=== PATIENT | male | born 1990 | race Caucasian/White ===

== ENCOUNTER 2017-07-11 07:09 | Emergency (ER) | payer BC, OTHER ==
[~2017-07-11] VITALS: Ht 170.2 cm; Wt 83.9 kg
--- OUTSIDE RECORDS SUMMARY | 2017-07-11 07:15 | XMS REPORT | Continuity of Care Document ---
Author Author [facility] Organization [facility] Address Unknown Phone Unavailable Allergies Medications Problems Procedures Results Encounters ACCT No. Visit Date/Time Discharge Status Pt. Type Provider Facility Loc./Unit Complaint [id number] 12/15/2015 18:10:00 2015 23:59:59 CLS Outpatient EDGAR ENNIS APRN [facility] QUICK [id number] 07/11/2017 07:12:00 ACT Emergency VISHNU AWAD , PATRICIA Liz [facility] ER ABD PAIN
[2017-07-11] MEDS ORDERED: ONDANSETRON 4 MG/2 ML (SDV) Z0FRAN ONE (07:19)
[2017-07-11] MEDS ORDERED: KETOROLAC 30 MG/ML VIAL ONE (07:19)
[2017-07-11] MEDS ORDERED: NS IV 1000 ML 1,000 ML ONE (07:20)
[2017-07-11] MEDS ORDERED: NS IV 1000 ML 1,000 ML IV ONE (07:23)
[2017-07-11] MEDS ORDERED: KETOROLAC 30 MG/ML VIAL IVP ONE (07:30)
[2017-07-11] MEDS ORDERED: ONDANSETRON 4 MG/2 ML (SDV) Z0FRAN IVP ONE (07:30)
[2017-07-11 07:34] LABS: BASOPHILS % (AUTO) 1 % (0-10); EOSINOPHILS # (AUTO) 0.1 10^3/uL (0.0-0.3); EOSINOPHILS % (AUTO) 2 % (0-10); LYMPHOCYTES # (AUTO) 2.6 X 10^3 (1.0-4.0); LYMPHOCYTES % (AUTO) 36 % (12-44); MEAN CORPUSCULAR HEMOGLOBIN 30 PG (25-34); MEAN CORPUSCULAR HGB CONC 36 G/DL (32-36); MEAN CORPUSCULAR VOLUME 84 FL (80-99); MEAN PLATELET VOLUME 10.8 FL (7.4-10.4); MONOCYTES # (AUTO) 0.5 X 10^3 (0.0-1.0); MONOCYTES % (AUTO) 7 % (0-12); NEUTROPHILS % (AUTO) 55 % (42-75); PLATELET COUNT 280 10^3/uL (130-400); RED BLOOD COUNT 5.01 10^6/uL (4.35-5.85); RED CELL DISTRIBUTION WIDTH 12.2 % (10.0-14.5); WHITE BLOOD COUNT 7.3 10^3/uL (4.3-11.0)
--- NOTE | 2017-07-11 07:46 | ED Abdominal Pain ---
General Chief Complaint: Abdominal/GI Problems Stated Complaint: ABD PAIN Nursing Triage Note: ARRIVED VIA AMB TO ROOM 07 FROM HOME. 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 Sepsis Screen: No Definite Risk Source of Information: Patient, Family Exam Limitations: No Limitations History of Present Illness Time Seen By Provider: 07:12 Initial Comments This 26-year-old young man presents to emergency room with intermittent right flank pain for the past few days. This morning between 06:00 and 06:30 the pain became very severe. He presents to the emergency room by private vehicle writhing in pain. He was found by this provider by over a trash can in the waiting room vomiting. He reports the pain is in the right lower back, flank, and radiating down toward the pelvis. Any movement exacerbates the pain. He denies any urinary changes or fever. Allergies and Home Medications Allergies Coded Allergies: diphenhydramine (Verified Allergy, Unknown, 07/11/17) Home Medications Hydrocodone/Acetaminophen 1 Each Tablet, 1-2 EACH PO Q4H PRN for PAIN, #20 Prescribed by: PATRICIA DEVRIES on 07/11/17 1011 Ondansetron 4 Mg Tab.rapdis, 4 MG SL Q4H PRN for NAUSEA/VOMITING-1ST LINE, #10 Prescribed by: PATRICIA DEVRIES on 07/11/17 1011 Review of Systems Constitutional: no symptoms reported EENTM: No Symptoms Reported Respiratory: No Symptoms Reported Cardiovascular: No Symptoms Reported Gastrointestinal: See HPI Genitourinary: No Symptoms Reported Musculoskeletal: see HPI Skin: no symptoms reported Psychiatric/Neurological: No Symptoms Reported Endocrine: No Symptoms Reported Hematologic/Lymphatic: No Symptoms Reported Past Mcdohts-Bsrzcl-Cygoby Hx Patient Social History Alcohol Use: Denies Use Recreational Drug Use: No Smoking Status: Current Someday Smoker Type Used: Cigars Recent Foreign Travel: No Contact w/Someone Who Travel: No Recent Infectious Disease Expo: No Recent Hopitalizations: No Surgeries History of Surgeries: Yes (NOSE) Respiratory History of Respiratory Disorde: No Cardiovascular History of Cardiac Disorders: No Neurological History of Neurological Disord: No Reproductive System Hx Reproductive Disorders: No Genitourinary History of Genitourinary Disor: No Gastrointestinal History of Gastrointestinal Di: No Musculoskeletal History of Musculoskeletal Dis: No Endocrine History of Endocrine Disorders: No HEENT History of HEENT Disorders: No Cancer History of Cancer: No Psychosocial History of Psychiatric Problem: No Integumentary History of Skin or Integumenta: No Blood Transfusions History of Blood Disorders: No Physical Exam Vital Signs VS - Last 72 Hours, by Label 07/11/17 07/11/17 07:20 10:18 Temp 98.7 Pulse 83 71 Resp 16 18 B/P (MAP) 126/104 (111) Pulse Ox 98 98 O2 Delivery Room Air Room Air Capillary Refill : Less Than 3 Seconds General Appearance: WD/WN, moderate distress HEENT: PERRL/EOMI, normal ENT inspection Neck: normal inspection Respiratory: lungs clear, normal breath sounds, no respiratory distress, no accessory muscle use Cardiovascular: regular rate, rhythm, no edema, no murmur Gastrointestinal: soft, abnormal bowel sounds (decreased), tenderness ( throughout the right abdomen and pelvis, most intense in the right flank) Extremities: normal inspection, no pedal edema 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, no motor/sensory deficits, alert, normal mood/affect, oriented x 3 Skin: normal color, warm/dry Progress/Results/Core Measures Results/Orders Lab Results Laboratory Tests Test 07/11/17 07:25 07/11/17 08:10 Range/Units White Blood Count 7.3 4.3-11.0 10^3/uL Red Blood Count 5.01 4.35-5.85 10^6/uL Hemoglobin 15.1 13.3-17.7 G/DL Hematocrit 42 40-54 % Mean Corpuscular Volume 84 80-99 FL Mean Corpuscular Hemoglobin 30 25-34 PG Mean Corpuscular Hemoglobin Concent 36 32-36 G/DL Red Cell Distribution Width 12.2 10.0-14.5 % Platelet Count 280 130-400 10^3/uL Mean Platelet Volume 10.8 H 7.4-10.4 FL Neutrophils (%) (Auto) 55 42-75 % Lymphocytes (%) (Auto) 36 12-44 % Monocytes (%) (Auto) 7 0-12 % Eosinophils (%) (Auto) 2 0-10 % Basophils (%) (Auto) 1 0-10 % Neutrophils # (Auto) 4.0 1.8-7.8 X 10^3 Lymphocytes # (Auto) 2.6 1.0-4.0 X 10^3 Monocytes # (Auto) 0.5 0.0-1.0 X 10^3 Eosinophils # (Auto) 0.1 0.0-0.3 10^3/uL Basophils # (Auto) 0.0 0.0-0.1 10^3/uL Sodium Level 139 135-145 MMOL/L Potassium Level 3.5 L 3.6-5.0 MMOL/L Chloride Level 103 98-107 MMOL/L Carbon Dioxide Level 23 21-32 MMOL/L Anion Gap 13 5-14 MMOL/L Blood Urea Nitrogen 11 7-18 MG/DL Creatinine 1.08 0.60-1.30 MG/DL Estimat Glomerular Filtration Rate > 60 BUN/Creatinine Ratio 10 Glucose Level 127 H 70-105 MG/DL Calcium Level 9.1 8.5-10.1 MG/DL Total Bilirubin 0.6 0.1-1.0 MG/DL Aspartate Amino Transf (AST/SGOT) 23 5-34 U/L Alanine Aminotransferase (ALT/SGPT) 19 0-55 U/L Alkaline Phosphatase 90 40-136 U/L Total Protein 7.4 6.4-8.2 GM/DL Albumin 4.4 3.2-4.5 GM/DL Lipase 13 8-78 U/L Urine Color YELLOW Urine Clarity CLEAR Urine pH 6 5-9 Urine Specific [place] 1.020 1.016-1.022 Urine Protein 2+ H NEGATIVE Urine Glucose (UA) NEGATIVE NEGATIVE Urine Ketones NEGATIVE NEGATIVE Urine Nitrite NEGATIVE NEGATIVE Urine Bilirubin NEGATIVE NEGATIVE Urine Urobilinogen NORMAL NORMAL MG/DL Urine Leukocyte Esterase 1+ H NEGATIVE Urine RBC (Auto) 5+ H NEGATIVE Urine RBC >100 H /HPF Urine WBC 2-5 /HPF Urine Crystals NONE /LPF Urine Bacteria FEW H /HPF Urine Casts NONE /LPF Urine Mucus MODERATE H /LPF Urine Culture Indicated YES Micro Results Microbiology 07/11/17 Urine Culture - Final, Complete My Orders Orders - PATRICIA MARES MD Ua Culture If Indicated (07/11/17 07:16) Ondansetron Injection (Zofran Injectio (07/11/17 07:19) Ketorolac Injection (Toradol Injection) (07/11/17 07:19) Ns Iv 1000 Ml (Sodium Chloride 0.9%) (07/11/17 07:20) Cbc With Automated Diff (07/11/17 07:23) Comprehensive Metabolic Panel (07/11/17 07:23) Lipase (07/11/17 07:23) Saline Lock/Iv-Start (07/11/17 07:23) Ns Iv 1000 Ml (Sodium Chloride 0.9%) (07/11/17 07:23) Ondansetron Injection (Zofran Injectio (07/11/17 07:30) Ketorolac Injection (Toradol Injection) (07/11/17 07:30) Urine Culture (07/11/17 08:10) Ct Abd/Pelvis Wo(Kidney Stone) (07/11/17 08:53) Glycopyrrolate Injection (Robinul Inject (07/11/17 09:30) Abdomen/Kub 1view (07/11/17 09:25) Medications Given in ED Vital Signs/I&O Vital Sign - Last 12Hours 07/11/17 07/11/17 07:20 10:18 Temp 98.7 Pulse 83 71 Resp 16 18 B/P (MAP) 126/104 (111) Pulse Ox 98 98 O2 Delivery Room Air Room Air Blood Pressure Mean: 111 Progress Note : Time: 07:46 Progress Note Patient's presentation was rather suspicious for ureteral stone. He was given Toradol, Zofran, and IV fluids. Workup is pending. Diagnostic Imaging Plain Films/CT/US/NM/MRI: abdomen, pelvis Comments CT abdomen and pelvis viewed by me and report reviewed. See report below: NAME: NEVA DELATORRE [facility] REC#: [id number] PT STATUS: REG ER : 1990 PHYSICIAN: PATRICIA MARES MD ADMIT DATE: 07/11/17/ER Draft Date of Exam:07/11/17 CT ABD/PELVIS WO(KIDNEY STONE) PROCEDURE: CT urinary tract, rule out kidney stone. TECHNIQUE: Multiple contiguous axial images were obtained through the abdomen and pelvis without the use of intravenous contrast. INDICATION: Right flank pain. At the level of the L3-L4 intervertebral disc space, there is a 2.4 mm stone in the right ureter at the junction of its proximal and middle one thirds resulting in mild upstream right-sided hydroureteronephrosis. There is right-sided perinephric edema and mild periureteric edema. The right ureter beyond that level is normal in caliber with no additional opaque stone. The urinary bladder unremarkable. There are additional intrarenal nonobstructing stones on the right largest measuring 5 mm within its middle third. The unobstructed left kidney is nonfocal and without stone. The left ureter normal. The appendix is normal. The liver, spleen, adrenals and pancreas and gallbladder normal. Is no bowel obstruction. Is a fatty left inguinal hernia likely extending into the left scrotal sac but going below the [id number]. No herniated viscus or inflammation within the sac. IMPRESSION: A 2.4 mm stone proximal right ureter results in mild upstream hydronephrosis with additional nonobstructing intrarenal right-sided stones. Negative left kidney. Negative appendix, chronic fatty left inguinal hernia. Dictated on workstation # [id number] Dict: 07/11/17911 Trans: 07/11/17920 [facility] [id number] Interpreted by: NEVA PATEL Departure Impression Impression: Primary Impression: Right ureteral stone Additional Impressions: Nausea and vomiting Qualified Codes: R11.2 - Nausea with vomiting, unspecified Hydronephrosis Qualified Codes: N13.30 - Unspecified hydronephrosis Disposition: 01 HOME, SELF-CARE Condition: Improved Departure-Patient Inst. Decision time for Depature: 09:45 Referrals: NO,LOCAL PHYSICIAN (PCP/Family) Primary Care Physician Patient Instructions: Kidney Stones in Adults Add. Discharge Instructions: Drink plenty of clear liquids. Use your medications as prescribed. Do not drive or operate machinery while taking narcotic pain medications. Follow-up with your primary care provider and/or Dr. Lomas as soon as possible. You may need a referral from your primary care provider to see Dr. Lomas. Return to the emergency room if symptoms worsen or not controlled by your oral medications. Strain your urine in the funnel and bring any stones collected to your follow-up appointment. All discharge instructions reviewed with patient and/or family. Voiced understanding. Scripts Ondansetron (Zofran Odt) 4 Mg Tab.rapdis 4 MG SL Q4H Y for NAUSEA/VOMITING-1ST LINE, #10 TAB Prov: PATRICIA MARES MD 07/11/17 Hydrocodone/Acetaminophen (Hydrocodon -Acetaminophen 5-325) 1 Each Tablet 1-2 EACH PO Q4H Y for PAIN, #20 TAB Prov: PATRICIA MARES MD 07/11/17 Work/School Note: Work Release Form Date Seen in the Emergency Department: Jul 11, 2017 Return to Work: Jul 12, 2017 Other Restrictions Listed Below: No driving or operating machinery on narcotic pain medications PATRICIA MARES MD Jul 11, 2017 07:46
[2017-07-11 07:57] LABS: ALANINE AMINOTRANSFERASE 19 U/L (0-55); ALBUMIN 4.4 GM/DL (3.2-4.5); ANION GAP 13 MMOL/L (5-14); ASPARTATE AMINO TRANSFERASE 23 U/L (5-34); BILIRUBIN,TOTAL 0.6 MG/DL (0.1-1.0); BLOOD UREA NITROGEN 11 MG/DL (7-18); BUN/CREATININE RATIO 10; CALCIUM 9.1 MG/DL (8.5-10.1); CARBON DIOXIDE 23 MMOL/L (21-32); CHLORIDE 103 MMOL/L (98-107); CREATININE SERUM 1.08 MG/DL (0.60-1.30); GFR ESTIMATED > 60; GLUCOSE 127 MG/DL (70-105); LIPASE 13 U/L (8-78); POTASSIUM 3.5 MMOL/L (3.6-5.0); SODIUM 139 MMOL/L (135-145); TOTAL PROTEIN 7.4 GM/DL (6.4-8.2)
[2017-07-11 08:18] LABS: BILIRUBIN,URINE NEGATIVE (NEGATIVE); KETONES,URINE NEGATIVE (NEGATIVE); LEUKOCYTE ESTERASE ,URINE 1+ (NEGATIVE); NITRITE,URINE NEGATIVE (NEGATIVE); PH,URINE 6 (5-9); PROTEIN,URINE 2+ (NEGATIVE); UROBILINOGEN,URINE NORMAL (NORMAL)
--- NOTE | 2017-07-11 09:21 | Diagnostic Imaging Report ---
PROCEDURE: CT urinary tract, rule out kidney stone. TECHNIQUE: Multiple contiguous axial images were obtained through the abdomen and pelvis without the use of intravenous contrast. INDICATION: Right flank pain. At the level of the L3-L4 intervertebral disc space, there is a 2.4 mm stone in the right ureter at the junction of its proximal and middle one thirds resulting in mild upstream right-sided hydroureteronephrosis. There is right-sided perinephric edema and mild periureteric edema. The right ureter beyond that level is normal in caliber with no additional opaque stone. The urinary bladder unremarkable. There are additional intrarenal nonobstructing stones on the right largest measuring 5 mm within its middle third. The unobstructed left kidney is nonfocal and without stone. The left ureter normal. The appendix is normal. The liver, spleen, adrenals and pancreas and gallbladder normal. Is no bowel obstruction. Is a fatty left inguinal hernia likely extending into the left scrotal sac but going below the [id number]. No herniated viscus or inflammation within the sac. IMPRESSION: A 2.4 mm stone proximal right ureter results in mild upstream hydronephrosis with additional nonobstructing intrarenal right-sided stones. Negative left kidney. Negative appendix, chronic fatty left inguinal hernia. Dictated by: Dictated on workstation # [id number]
[2017-07-11] MEDS ORDERED: GLYCOPYRROLATE 0.2 MG/ML (ROBINUL) 2 ML VIAL IV ONE (09:30)
--- NOTE | 2017-07-11 09:49 | Diagnostic Imaging Report ---
INDICATION: Right-sided stone. FINDINGS: Calculus can be visualized measuring cephalocaudal length of roughly 3.3 mm and when imaged with a calculus at the midportion of the film this corresponds to the level of the inferior endplate L3 and inferior to the tip of the right third lumbar transverse process. Intrarenal stone measures a 3-4 mm partially obscured by overlying stool. Right renal shadow negative. IMPRESSION: Ureteral stone visualized when seen straight on is at the L3 inferior endplate level. The intrarenal right-sided stone partially visualized, left side negative. No bowel obstruction. Dictated by: Dictated on workstation # [id number]
[2017-07-11] MEDS ORDERED: ONDA4TAB8 SL (10:11)
[2017-07-11] MEDS ORDERED: HYDR-3812 PO (10:11)
[2017-07-11 10:18] VITALS: BP 112/77
== END 2017-07-11 10:18 | disposition home or self-care (01) ==
LOC: EDUNIT# 07:09 → ER 07:12
DX: N13.2 Hydronephrosis with renal and ureteral calculous obstruction (principal); F17.290 Nicotine dependence, other tobacco product, uncomplicated
CPT/HCPCS: 36415; 74000; 74176; 80053; 81000; 83690; 85025; 87088

== ENCOUNTER 2017-07-17 14:32 | Outpatient (CLI) | payer BC ==
[~2017-07-17] VITALS: Ht 170.2 cm; Wt 83.9 kg
[~2017-07-17 14:32] MED LIST changes: -CIPR-225 PO; -KETOROLAC 30 MG/ML VIAL ONE; -TAMS0.4C98 PO
[2017-07-17] MEDS ORDERED: TAMS0.4C98 PO ×2 (14:48)
[2017-07-18] MEDS ORDERED: CIPR-225 PO ×2 (15:09)
== END 2017-07-17 14:56 ==
LOC: PREOP 14:32
PROVIDERS: ATTEND Urology
DX: Z01.818 Encounter for other preprocedural examination (principal); N20.2 Calculus of kidney with calculus of ureter

== ENCOUNTER → 2017-07-17 | Outpatient (CLI) | payer BC ==
[~2017-07-17] MED LIST: CIPR-225 PO; HYDR-3812 PO; KETOROLAC 30 MG/ML VIAL ONE; ONDA4TAB8 SL; TAMS0.4C98 PO
--- NOTE | 2017-07-17 15:58 | Diagnostic Imaging Report ---
INDICATION: Followup calculus. COMPARISON: 07/11/2017. FINDINGS: Two supine radiographic views of the abdomen are obtained and again demonstrate small extraosseous calcification projecting over the right psoas muscle. Calcification appears to be slightly more inferior on today's exam, projecting inferior to the right L2 transverse process, as opposed to just superior to the transverse process on prior exam. No new extraosseous calcifications are seen. Small bowel loops are nondistended. Bony structures show no gross acute abnormalities. IMPRESSION: Probable slight interval distal migration of right-sided ureteral calculus. Dictated by: Dictated on workstation # [id number]
== END ==
LOC: RAD 12:08
PROVIDERS: ATTEND Urology
DX: N20.1 Calculus of ureter (principal)
CPT/HCPCS: 74000

== ENCOUNTER 2017-07-18 09:43 | Day surgery (SDC) | payer BC ==
[~2017-07-18] VITALS: Ht 170.2 cm; Wt 83.9 kg
[~2017-07-18 09:43] MED LIST changes: +TAMS0.4C98 PO
[2017-07-18 09:46] VITALS: BP 134/93
[2017-07-18] MEDS ORDERED: cefTRIAXone INJECTION 1,000 MG in NS (IVPB) 50 ML IV ONE (10:00)
--- NOTE | 2017-07-18 10:12 | Progress Note-Pre Operative ---
Pre-Operative Progress Note H&P Reviewed The H&P was reviewed, patient examined and no changes noted. Date Seen by Provider: Jul 18, 2017 Time Seen by Provider: 10:11 Date H&P Reviewed: Jul 18, 2017 Time H&P Reviewed: 10:11 Pre-Operative Diagnosis: RT URETERAL AND RENAL STONES KAHLIL MADDEN MD Jul 18, 2017 10:12 am
[2017-07-18] MEDS ORDERED: CATHETER FLUSH 10 ML SYR IV PRN (10:15)
--- NOTE | 2017-07-18 10:22 | Diagnostic Imaging Report ---
EXAMINATION: Supine views of the abdomen. INDICATION: Right-sided stone. COMPARISON: 06/1817. FINDINGS: The previously seen right flank suspected ureteric stone is not visualized at this time. No definite urinary tract stone. Moderate amount of fecal material in the colon is seen. IMPRESSION: No definite ureteric stone is seen at this time. Dictated by: Dictated on workstation # [id number]
[2017-07-18] MEDS ORDERED: LACTATED RINGERS 1,000 ML IV PRN (10:50)
--- NOTE | 2017-07-18 10:53 | Progress Note-Post Operative ---
Post-Operative Progess Note Surgeon (s)/Biodiesel Operations Manager (s) Surgeon KAHLIL MADDEN MD Biodiesel Operations Manager: N/A Pre-Operative Diagnosis RT URETERAL AND RENAL STONES Post-Operative Diagnosis SAME Procedure & Operative Findings Date of Procedure 07/18/17 Procedure Performed/Findings CYSTOSCOPY, RT RETROGRADE UROGRAM AND RT ESWL Anesthesia Type GENERAL Estimated Blood Loss Estimated blood loss (mL): N/A Specimens/Packing Specimens Removed N/A Packing: N/A KAHLIL MADDEN MD Jul 18, 2017 10:53 am
--- NOTE | 2017-07-18 10:54 | Discharge Inst-Urology ---
Discharge Inst-Urology Discharge Medications New, Converted, or Re-newed RX: RX on Chart Patient Instructions/Follow Up Plan Please make appointment to been seen in office in 4 weeks. KUB prior to it KUB on way home Post ESWL instructions Increase oral fluids for 48 hours and then as needed. Diet and Activity as tolerated. If questions or concerns contact your physician Or seek help at emergency department. KAHLIL MADDEN MD Jul 18, 2017 10:54 am
[2017-07-18] MEDS ORDERED: MIDAZOLAM 2 MG/2 ML (VERSED) VIAL IV ONE (11:00)
--- OUTSIDE RECORDS SUMMARY | 2017-07-18 11:05 | XMS REPORT | Continuity of Care Document ---
Author Author [facility] Organization [facility] Address Unknown Phone Unavailable Allergies Active Description Code Type Severity Reaction Onset Reported/Identified Relationship to Patient Clinical Status Yes diphenhydramine [id number] Drug Allergy Unknown N/A 07/17/2017 Medications There is no data. Problems There is no data. Procedures There is no data. Results Test Result Range Complete blood count (CBC) with automated white blood cell (WBC) differential - 07/11/17 07:25 Blood leukocytes automated count (number/volume) 7.3 10*3/uL 4.3-11.0 Blood erythrocytes automated count (number/volume) 5.01 10*6/uL 4.35-5.85 Venous blood hemoglobin measurement (mass/volume) 15.1 g/dL 13.3-17.7 Blood hematocrit (volume fraction) 42 % 40-54 Automated erythrocyte mean corpuscular volume 84 [foz_us] 80-99 Automated erythrocyte mean corpuscular hemoglobin (mass per erythrocyte) 30 pg 25-34 Automated erythrocyte mean corpuscular hemoglobin concentration measurement ( mass/volume) 36 g/dL 32-36 Automated erythrocyte distribution width ratio 12.2 % 10.0-14.5 Automated blood platelet count (count/volume) 280 10*3/uL 130-400 Automated blood platelet mean volume measurement 10.8 [foz_us] 7.4-10.4 Automated blood neutrophils/100 leukocytes 55 % 42-75 Automated blood lymphocytes/100 leukocytes 36 % 12-44 Blood monocytes/100 leukocytes 7 % 0-12 Automated blood eosinophils/100 leukocytes 2 % 0-10 Automated blood basophils/100 leukocytes 1 % 0-10 Blood neutrophils automated count (number/volume) 4.0 10*3 1.8-7.8 Blood lymphocytes automated count (number/volume) 2.6 10*3 1.0-4.0 Blood monocytes automated count (number/volume) 0.5 10*3 0.0-1.0 Automated eosinophil count 0.1 10*3/uL 0.0-0.3 Automated blood basophil count (count/volume) 0.0 10*3/uL 0.0-0.1 Comprehensive metabolic panel - 07/11/17 07:25 Serum or plasma sodium measurement (moles/volume) 139 mmol/L 135-145 Serum or plasma potassium measurement (moles/volume) 3.5 mmol/L 3.6-5.0 Serum or plasma chloride measurement (moles/volume) 103 mmol/L 98-107 Carbon dioxide 23 mmol/L 21-32 Serum or plasma anion gap determination (moles/volume) 13 mmol/L 5-14 Serum or plasma urea nitrogen measurement (mass/volume) 11 mg/dL 7-18 Serum or plasma creatinine measurement (mass/volume) 1.08 mg/dL 0.60-1.30 Serum or plasma urea nitrogen/creatinine mass ratio 10 NRG Serum or plasma creatinine measurement with calculation of estimated glomerular filtration rate > NRG Serum or plasma glucose measurement (mass/volume) 127 mg/dL 70-105 Serum or plasma calcium measurement (mass/volume) 9.1 mg/dL 8.5-10.1 Serum or plasma total bilirubin measurement (mass/volume) 0.6 mg/dL 0.1-1.0 Serum or plasma alkaline phosphatase measurement (enzymatic activity/volume) 90 U/L 40-136 Serum or plasma aspartate aminotransferase measurement (enzymatic activity/ volume) 23 U/L 5-34 Serum or plasma alanine aminotransferase measurement (enzymatic activity/volume ) 19 U/L 0-55 Serum or plasma protein measurement (mass/volume) 7.4 g/dL 6.4-8.2 Serum or plasma albumin measurement (mass/volume) 4.4 g/dL 3.2-4.5 Lipase - 07/11/17 07:25 Lipase 13 U/L 8-78 Complete urinalysis with reflex to culture - 07/11/17 08:10 Urine color determination YELLOW NRG Urine clarity determination CLEAR NRG Urine pH measurement by test strip 6 5-9 Specific gravity of urine by test strip 1.020 1.016- 1.022 Urine protein assay by test strip, semi-quantitative 2+ NEGATIVE Urine glucose detection by automated test strip NEGATIVE NEGATIVE Erythrocytes detection in urine sediment by light microscopy 5+ NEGATIVE Urine ketones detection by automated test strip NEGATIVE NEGATIVE Urine nitrite detection by test strip NEGATIVE NEGATIVE Urine total bilirubin detection by test strip NEGATIVE NEGATIVE Urine urobilinogen measurement by automated test strip (mass/volume) NORMAL NORMAL Urine leukocyte esterase detection by dipstick 1+ NEGATIVE Automated urine sediment erythrocyte count by microscopy (number/high power field) > [HPF] NRG Automated urine sediment leukocyte count by microscopy (number/high power field ) [HPF] NRG Bacteria detection in urine sediment by light microscopy FEW NRG Crystals detection in urine sediment by light microscopy NONE NRG Casts detection in urine sediment by light microscopy NONE NRG Mucus detection in urine sediment by light microscopy MODERATE NRG Complete urinalysis with reflex to culture YES NRG Bacterial urine culture - 07/11/17 08:10 URINE CULTURE RESULTS <10,000/ML NRG Encounters ACCT No. Visit Date/Time Discharge Status Pt. Type Provider Facility Loc./Unit Complaint [id number] 07/17/2017 14:32:00 07/17/2017 14:56:00 DIS Outpatient KAHLIL MADDEN MD [facility] PREOP RIGHT URETERAL AND RENAL STONES [id number] 07/11/2017 07:12:00 07/11/2017 10:18:00 DIS Emergency PATRICIA MARES MD [facility] ER ABD PAIN [id number] 12/15/2015 18:10:00 12/15/2015 23:59:59 CLS Outpatient EDGAR ENNIS APRN [facility] QUICK [id number] 07/18/2017 09:43:00 ACT Outpatient KAHLIL MADDEN MD [facility] SDC RIGHT URETERAL AND RENAL STONES [id number] 07/17/2017 12:08:00 ACT Outpatient KAHLIL MADDEN MD [facility] [place] [id number]
[2017-07-18] MEDS ORDERED: fentaNYL INJECTION 100 MCG/2 ML AMP ONE (12:06)
[2017-07-18] MEDS ORDERED: ONDANSETRON 4 MG/2 ML (SDV) Z0FRAN ONE (12:06)
[2017-07-18] MEDS ORDERED: proPOfol 200 MG/20 ML (DIPRIVAN) VIAL IV ONE (12:06)
[2017-07-18] MEDS ORDERED: LIDOCAINE PF 2% 5 ML (XYLOCAINE) VIAL ONE (12:06)
[2017-07-18] MEDS ORDERED: MIDAZOLAM 2 MG/2 ML (VERSED) VIAL ONE (12:07)
[2017-07-18] MEDS ORDERED: SEVOFLURANE (ULTANE) 15 ML INHAL SOLN ONE ×3 (12:08→13:32)
[2017-07-18] MEDS ORDERED: DEXAMETHASONE 10 MG/ML (DECADRON) 1 ML VIAL ONE (12:08)
[2017-07-18] MEDS ORDERED: FUROSEMIDE 40 MG/4 ML INJ (LASIX) ONE (13:17)
--- NOTE | 2017-07-18 13:59 | Diagnostic Imaging Report ---
EXAMINATION: Retrograde pyeloureterogram. INDICATION: Right flank pain and hematuria. FINDINGS: There is mild distention of the right renal collecting system possibly related to the retrograde injection. There is no definite stone identified. IMPRESSION: No definite right ureteric stone is seen. Please note that the images provided do not include the most distal aspect of the right ureter. Dictated by: Dictated on workstation # [id number]
[2017-07-18 14:30] VITALS: BP 115/82
[2017-07-18 15:00] VITALS: BP 122/85
[2017-07-18] MEDS ORDERED: CIPR-225 PO ×2 (15:09)
[2017-07-18 15:30] VITALS: BP 130/82
--- NOTE | 2017-07-18 15:46 | Diagnostic Imaging Report ---
Supine view of the abdomen. INDICATION: Post lithotripsy. COMPARISON: 07/18/2017. FINDINGS: No definite urinary tract stone is identified. Unremarkable bowel gas pattern is noted. IMPRESSION: No definite stone is seen. Dictated by: Dictated on workstation # [id number]
--- NOTE | 2017-07-19 00:54 | OPERATIVE REPORT ---
DATE OF SERVICE: 07/18/2017 PREOPERATIVE DIAGNOSIS: Right proximal ureteral and right renal stones. POSTOPERATIVE DIAGNOSIS: Right proximal ureteral and right renal stones. OPERATION PERFORMED: Cystoscopy, right retrograde ureterogram and right ESWL. SURGEON: Chris Madden MD ANESTHESIA: General. COMPLICATIONS: None. PROCEDURE: Under satisfactory general anesthesia, the patient in lithotomy position in the cysto room. The genitalia were prepped and draped in the usual sterile fashion. Cystoscope was introduced under vision. There was a submeatal stricture responding to the scope. The rest of the urethra was normal. The prostate was nonobstructive. Bladder neck was open. Bladder was essentially normal. Normal ureteric orifices with clear efflux, sluggish on the right side. Using the foroblique lens, I passed a right ureteral catheter, a 6-Russian size all the way up to the level of the presumed stone. I met resistance; however, it gave up and the stone seemed to have been pushed back into the kidney. I injected contrast and there was no filling defect at the site of the stone. There was a filling defect in the pelvicalyceal system persistent throughout the injections. I passed the catheter all the way up and down injecting contrast. The ureter was emptying very nicely. There was still some dilatation of the calices from previous obstruction and dilatation of the ureter to the level of the previous stone presence, below that the ureter was thin and nice. However, the ureter was definitely emptying very well. There was no filling defect. I went ahead and emptied the bladder, removed the cystoscope, moved the patient to the ESWL table in supine. We localized the filling defect in the right kidney and delivered 1500 shocks at kV of 5 and we could not see the filling defect anymore. It was interesting that the kidney was emptying itself very well and the calices were becoming very sharp and nicely, no more dilated, which confirmed no more obstruction. The patient received 40 mg of Lasix and 30 mg of Toradol IV at the end of the procedure. He tolerated the procedure and anesthesia well and was sent to recovery room in stable condition. Job ID: [id number] DocumentID: [id number] Dictated Date: 07/18/2017 13:40:07 Bottoming Room Supervisor Date: 07/19/2017 00:24:13 Dictated By: CHRIS MADDEN MD
== END 2017-07-18 15:38 | disposition home or self-care (01) ==
LOC: SDC 09:43
PROVIDERS: ATTEND Urology
DX: N20.2 Calculus of kidney with calculus of ureter (principal)
CPT/HCPCS: 74000; 87081

== ENCOUNTER → 2017-08-15 | Outpatient (CLI) | payer BC ==
[~2017-08-15] MED LIST changes: +ACHD5005 PO; +CIPR-225 PO; -HYDR-3812 PO
--- NOTE | 2017-08-15 16:48 | Diagnostic Imaging Report ---
INDICATION: Status post lithotripsy. Surveillance imaging. COMPARISON: 07/18/2017. FINDINGS AND IMPRESSION: 1. No radiopaque renal or ureteral calculi are confirmed. 2. Nonobstructive bowel gas pattern. 3. Normal regional skeleton. Dictated by: Dictated on workstation # [id number]
== END ==
LOC: RAD 15:20
PROVIDERS: ATTEND Urology
DX: Z09 Encounter for follow-up examination after completed treatment for conditions other than malignant neoplasm (principal); Z87.442 Personal history of urinary calculi; Z98.890 Other specified postprocedural states
CPT/HCPCS: 74018

== ENCOUNTER → 2018-12-27 | Emergency (ER) | payer SELFPAY ==
[~2018-12-27] VITALS: Ht 170.2 cm; Wt 86.2 kg
[~2018-12-27] MED LIST changes: +CEPH500T PO
--- NOTE | 2018-12-27 04:55 | NUR ---
radiating to left side started 0330 this am. pt here with " ". pt alert gcs 15. pt relates " i have kidney stones". pt has h/o k stones on the right. pt relates llq abd pain . pt relates pain went away in the prking lot here ten changed to pain rating 1-2. c/o nausea w/o v/d. skin pale. pt c/o blood in ua and pain with ua and ua less then usual. denies dyspnea and no acute sighns of dyspnea noted. pt took motrin group captain here. rocio gs cta bilaterally. abd soft nondistended neg pain with palpaion. pt cant ua yet. done terence pt at 0501.
--- OUTSIDE RECORDS SUMMARY | 2018-12-27 04:55 | XMS REPORT | Continuity of Care Document ---
Author Organization Unknown Address Unknown Allergies Active Description Code Type Severity Reaction Onset Reported/Identified Relationship to Patient Clinical Status Yes diphenhydramine [id number] Drug Allergy Unknown N/A 07/17/2017 Medications There is no data. 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 07/11/2017 PATRICIA MARES MD Ot R10.9 UNSPECIFIED ABDOMINAL PAIN 07/17/2017 KAHLIL MADDEN MD Ot N20.2 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 07/17/2017 KAHLIL MADDEN MD Ot Z01.818 ENCOUNTER FOR OTHER PREPROCEDURAL EXAMIN 07/18/2017 KAHLIL MADDEN MD Ot N20.2 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 07/20/2017 CHANO AWAD, KAHLIL Rincon Ot N20.2 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 07/20/2017 KAHLIL MADDEN MD Ot Z01.818 ENCOUNTER FOR OTHER PREPROCEDURAL EXAMIN 07/20/2017 KAHLIL MADDEN MD Ot N20.2 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 07/20/2017 CHANO AWAD, KAHLIL Rincon Ot N20.2 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 07/24/2017 KAHLIL MADDEN MD Ot N20.2 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 07/29/2017 KAHLIL MADDEN MD Ot N20.2 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 07/29/2017 KAHLIL MADDEN MD Ot Z01.818 ENCOUNTER FOR OTHER PREPROCEDURAL EXAMIN 08/16/2017 KAHLIL MADDEN MD, Ot Z09 ENCNTR FOR F/U EXAM AFT TRTMT FOR COND O 08/16/2017 KAHLIL MADDEN MD, Ot Z87.442 PERSONAL HISTORY OF URINARY CALCULI 08/16/2017 KAHLIL MADDEN MD, Ot Z98.890 OTHER SPECIFIED POSTPROCEDURAL STATES 08/17/2017 KAHLIL MADDEN MD, Ot N20.1 CALCULUS OF URETER 08/31/2017 KAHLIL MADDEN MD, Ot Z09 ENCNTR FOR F/U EXAM AFT TRTMT FOR COND O 08/31/2017 KAHLIL MADDEN MD, Ot Z87.442 PERSONAL HISTORY OF URINARY CALCULI 08/31/2017 KAHLIL MADDEN MD, Ot Z98.890 OTHER SPECIFIED POSTPROCEDURAL STATES 03/21/2018 Ot 780.79 OTH MALAISE FATIGUE 03/21/2018 Ot 786.50 CHEST PAIN NOS 03/21/2018 Ot 786.50 CHEST PAIN NOS 03/21/2018 KAHLIL MADDEN MD, Ot N20.1 CALCULUS OF URETER 03/21/2018 KAHLIL MADDEN MD Ot Z09 ENCNTR FOR F/U EXAM AFT TRTMT FOR COND O 03/21/2018 KAHLIL MADDEN MD, Ot Z87.442 PERSONAL HISTORY OF URINARY CALCULI 03/21/2018 KAHLIL MADDEN MD, Ot Z98.890 OTHER SPECIFIED POSTPROCEDURAL STATES 03/21/2018 KAHLIL MADDEN MD Ot N20.1 CALCULUS OF URETER 03/21/2018 KAHLIL MADDEN MD Ot Z09 ENCNTR FOR F/U EXAM AFT TRTMT FOR COND O 03/21/2018 KAHLIL MADDEN MD, Ot Z87.442 PERSONAL HISTORY OF URINARY CALCULI 03/21/2018 KAHLIL MADDEN MD, Ot Z98.890 OTHER SPECIFIED POSTPROCEDURAL STATES 12/27/2018 KAHLIL MADDEN MD, Ot N20.1 CALCULUS OF URETER 12/27/2018 KAHLIL MADDEN MD Ot Z09 ENCNTR FOR F/U EXAM AFT TRTMT FOR COND O 12/27/2018 KAHLIL MADDEN MD, Ot Z87.442 PERSONAL HISTORY OF URINARY CALCULI 12/27/2018 CHANO AWAD, KAHLIL Rincon Ot Z98.890 OTHER SPECIFIED POSTPROCEDURAL STATES Procedures There is no data. Results Test [...] Automated erythrocyte mean corpuscular hemoglobin concentration measurement (mass/volume) 36 g/dL 32-36 Automated erythrocyte distribution width ratio 12.2 % 10.0- 14.5 Automated blood platelet count (count/volume) 280 10*3/uL [...] Blood monocytes automated count (number/volume) 0.5 10*3 0.0- 1.0 Automated eosinophil count 0.1 10*3/uL 0.0-0.3 Automated [...] Serum or plasma aspartate aminotransferase measurement (enzymatic activity/volume) 23 U/L 5-34 Serum or plasma alanine aminotransferase measurement (enzymatic activity/volume) 19 U/L 0-55 Serum or plasma protein [...] gravity of urine by test strip 1.020 1.016-1.022 Urine protein assay by test strip, semi-quantitative [...] sediment leukocyte count by microscopy (number/high power field) [HPF] NRG Bacteria detection in urine sediment by light microscopy FEW NRG Crystals detection in urine sediment by light microscopy NONE NRG Casts detection in urine sediment by light microscopy NONE NRG Mucus detection in urine sediment by light microscopy MODERATE NRG Complete urinalysis with reflex to culture YES NRG Bacterial urine culture - 07/11/17 08:10 URINE CULTURE RESULTS <10,000/ML NRG Methicillin resistant Staphylococcus aureus (MRSA) screening culture - 07/18/17 10:25 Methicillin resistant Staphylococcus aureus (MRSA) screening culture NEG NRG Encounters ACCT No. Visit Date/Time Discharge Status Pt. Type Provider Facility Loc./Unit Complaint [id number] 08/15/2017 15:20:00 08/15/2017 23:59:59 CLS Outpatient KAHLIL MADDEN MD [facility] RAD STONES [id number] 07/18/2017 09:43:00 07/18/2017 15:38:00 DIS Outpatient KAHLIL MADDEN MD [facility] SDC RIGHT URETERAL AND RENAL STONES [id number] 07/17/2017 12:08:00 07/17/2017 23:59:59 CLS Outpatient KAHLIL MADDEN MD [facility] RAD [address]000 [id number] 07/17/2017 14:32:00 07/17/2017 14:56:00 DIS Outpatient KAHLIL MADDEN MD [facility] PREOP RIGHT URETERAL AND RENAL STONES [id number] 07/11/2017 07:12:00 07/11/2017 10:18:00 DIS Emergency PATRICIA MARES MD [facility] ER ABD PAIN [id number] 12/15/2015 18:10:00 12/15/2015 23:59:59 CLS Outpatient EDGAR ENNIS APRN [facility] QUICK CRUSH INJURY/FINGER PAIN,SWELLING [id number] 12/27/2018 04:52:00 ACT Emergency PATRICIA MARES MD [facility] ER POSS KIDNEY STONES [id number] 04/13/2010 09:46:00 Document Registration [id number] 04/12/2010 10:04:00 Document Registration
--- NOTE | 2018-12-27 05:22 | NUR ---
pt given urinal for ua and told call out when he does.
--- NOTE | 2018-12-27 05:44 | NUR ---
ua to lab by
[2018-12-27 05:48] LABS: BILIRUBIN,URINE NEGATIVE (NEGATIVE); COLOR,URINE YELLOW; GLUCOSE, URINE (UA) NEGATIVE (NEGATIVE); KETONES,URINE NEGATIVE (NEGATIVE); LEUKOCYTE ESTERASE ,URINE 1+ (NEGATIVE); NITRITE,URINE NEGATIVE (NEGATIVE); PH,URINE 6 (5-9); PROTEIN,URINE 1+ (NEGATIVE); UROBILINOGEN,URINE NORMAL (NORMAL)
--- NOTE | 2018-12-27 05:55 | ED Abdominal Pain ---
General Chief Complaint: Abdominal/GI Problems Stated Complaint: POSS KIDNEY STONES Nursing Triage Note: abd pain radiating to left side Sepsis Screen: No Definite Risk Source of Information: Patient Exam Limitations: No Limitations (PATRICIA MARES MD) History of Present Illness Date Seen by Provider: December 27, 2018 Time Seen by Provider: 04:55 Initial Comments This 28-year-old gentleman presents to the emergency room with complaints of sudden onset of left flank and left lower quadrant pain that woke him from sleep at 03:30. He states his pain was initially 15 out of 10. While checking in in the waiting room, his pain spontaneously resolved and is now minimal at 1 out of 10. He thought perhaps there was a small amount of blood in his urine this morning. He does have a history of ureteral stone and has required intervention in the past. He states this pain felt similar. He had some nausea associated with the pain but did not vomit. He reports decreased urine output and dysuria. (PATRICIA MARES MD) Allergies and Home Medications Allergies Coded Allergies: diphenhydramine (Verified Allergy, Unknown, 07/17/17) Home Medications Cephalexin 500 Mg Tablet, 500 MG PO BID Prescribed by: CHIKIS MANCIA on 12/27/18 0638 Ciprofloxacin HCl 500 Mg Tablet, 500 MG PO BID Prescribed by: MARLINE WHARTON on 07/18/17 1509 Hydrocodone Bit/Acetaminophen 1 Each Tablet, 1-2 EACH PO Q4H PRN for PAIN Prescribed by: PATRICIA DEVRIES on 07/11/17 1011 Ondansetron 4 Mg Tab.rapdis, 4 MG SL Q4H PRN for NAUSEA/VOMITING-1ST LINE Prescribed by: PATRICIA DEVRIES on 07/11/17 1011 Tamsulosin HCl 0.4 Mg Cap, 0.4 MG PO DAILY, (Reported) Patient Home Medication List Home Medication List Reviewed: Yes (PATRICIA MARES MD) Review of Systems Review of Systems Constitutional: no symptoms reported EENTM: No Symptoms Reported Respiratory: No Symptoms Reported Cardiovascular: No Symptoms Reported Gastrointestinal: See HPI Genitourinary: See HPI Musculoskeletal: no symptoms reported Skin: no symptoms reported Psychiatric/Neurological: No Symptoms Reported Endocrine: No Symptoms Reported Hematologic/Lymphatic: No Symptoms Reported (PATRICIA MARES MD) Past Epknome-Bnglwo-Xbnoqi Hx Past Med/Social Hx: Reviewed and Corrections made (PATRICIA MARES MD) Patient Social History Alcohol Use: Denies Use Recreational Drug Use: No Smoking Status: Never a Smoker Type Used: Cigars Recent Foreign Travel: No Contact w/Someone Who Travel: No Recent Infectious Disease Expo: No Recent Hopitalizations: No Physical Abuse: No Sexual Abuse: No (PATRICIA MARES MD) Seasonal Allergies Seasonal Allergies: No (PATRICIA MARES MD) Past Medical History Surgeries: Yes (NOSE) Renal (kidney stone) Respiratory: No Cardiac: No Neurological: No Reproductive Disorders: No Sexually Transmitted Disease: No HIV/AIDS: No Genitourinary: Yes Kidney Stones Gastrointestinal: No Musculoskeletal: No Endocrine: No HEENT: No Loss of Vision: Denies Hearing Impairment: Denies Cancer: No Psychosocial: No Integumentary: No Blood Disorders: No Adverse Reaction/Blood Tranf: No (N/A) (PATRICIA MARES MD) Physical Exam Vital Signs Vital Signs - First Documented 12/27/18 04:55 Temp 98.0 Pulse 68 Resp 12 B/P (MAP) 134/80 (98) Pulse Ox 99 O2 Delivery Room Air (CHIKIS MANCIA) Vital Signs Capillary Refill : Less Than 3 Seconds (PATRICIA MARES MD) Height/Weight/BMI Height: 5'7.00" Weight: 190lbs. 0.0oz. 86.450803ov; 29.0 BMI Method:Stated General Appearance: WD/WN, no apparent distress HEENT: PERRL/EOMI, normal ENT inspection Neck: normal inspection Respiratory: lungs clear, normal breath sounds, no respiratory distress, no accessory muscle use Cardiovascular: regular rate, rhythm, no edema, no murmur Gastrointestinal: normal bowel sounds, non tender, soft; No distended Extremities: normal inspection, no pedal edema Neurologic/Psychiatric: display artist II-XII nml as tested, no motor/sensory deficits, alert, normal mood/affect, oriented x 3 Skin: normal color, warm/dry (PATRICIA MARES MD) Progress/Results/Core Measures Results/Orders Lab Results Laboratory Tests Test 12/27/18 05:42 Range/Units Urine Color YELLOW Urine Clarity SL CLOUDY Urine pH 6 5-9 Urine Specific [place] 1.020 1.016-1.022 Urine Protein 1+ H NEGATIVE Urine Glucose (UA) NEGATIVE NEGATIVE Urine Ketones NEGATIVE NEGATIVE Urine Nitrite NEGATIVE NEGATIVE Urine Bilirubin NEGATIVE NEGATIVE Urine Urobilinogen NORMAL NORMAL MG/DL Urine Leukocyte Esterase 1+ H NEGATIVE Urine RBC (Auto) 5+ H NEGATIVE Urine RBC >100 H /HPF Urine WBC 0-2 /HPF Urine Squamous Epithelial Cells RARE /HPF Urine Crystals NONE /LPF Urine Bacteria TRACE /HPF Urine Casts PRESENT /LPF Urine Hyaline Casts RARE /LPF Urine Mucus MODERATE H /LPF Urine Culture Indicated NO (CHIKIS MANCIA) My Orders Orders - CHIKIS MANCIA Ct Abd/Pelvis Wo(Kidney Stone) (12/27/18 06:04) (CHIKIS MANCIA) Vital Signs/I&O 12/27/18 04:55 Temp 98.0 Pulse 68 Resp 12 B/P (MAP) 134/80 (98) Pulse Ox 99 O2 Delivery Room Air (CHIKIS MANCIA) Blood Pressure Mean: 98 Progress Progress Note : Time: 05:55 Progress Note Patient's pain has pretty well resolved. Urinalysis is pending. Care of this patient is being transitioned to Dr. Mancia at this time. (PATRICIA MARES MD) Progress Note : Progress Note Assumed care of the patient at shift change. He has hematuria and symptoms consistent with a kidney stone. We have discussed doing a CT scan without contrast to confirm the stone has passed and he agrees. He does not want anything for pain or nausea at this time. (CHIKIS MANCIA) Diagnostic Imaging Diagonstic Imaging: CT Plain Films/CT/US/NM/MRI: abdomen, pelvis Comments Small approximately 2 mm stone in the bladder. No ureteral stone or hydronephrosis. There is a left inguinal hernia without associated intestine. NAME: NEVA DELATORRE MED REC#: [id number] PT STATUS: REG ER : 1990 PHYSICIAN: CHIKIS MANCIA MD ADMIT DATE: 12/27/18/ER Draft Date of Exam:12/27/18 CT ABD/PELVIS WO(KIDNEY STONE) PROCEDURE: CT urinary tract, rule out kidney stone. TECHNIQUE: Multiple contiguous axial images were obtained through the abdomen and pelvis without the use of intravenous contrast. Auto Exposure Controls were utilized during the CT exam to meet ALARA standards for radiation dose reduction. INDICATION: Left flank pain Lung bases are clear. Liver appears normal. Gallbladder is present. Pancreas is normal. Spleen is not enlarged. Kidneys and adrenals appear normal. Small bowel is not dilated. There is moderate amount of stool in the colon. Urinary bladder is normal. There is a large left inguinal hernia containing fat. Prostate is not enlarged. IMPRESSION: Large left inguinal hernia containing fat. No acute abnormality seen. Preliminary report is not available at time of dictation. Dictated on workstation # [id number] Dict: 12/27/18624 Trans: 12/27/18 0634 [facility] [id number] Interpreted by: LOLA LEON MD Electronically signed by: Reviewed: Reviewed by Me (CHIKIS MANCIA) Departure Impression Primary Impression: Urinary bladder calculus Additional Impression: Left inguinal hernia Disposition: HOME, SELF-CARE Condition: Stable Departure-Patient Inst. Decision time for Depature: 06:35 (CHIKIS MANCIA) Referrals: [facility] DO NO,LOCAL PHYSICIAN (PCP) Primary Care Physician Patient Instructions: Hernia Repair (DC), Kidney Stones (DC) Add. Discharge Instructions: You may experience some pain as you pass the stone from the bladder out. To prevent an infection please take the Keflex one capsule twice a day for the next 5 days. You may call the general surgeon and discuss elective inguinal hernia repair by asking for an appointment. All discharge instructions reviewed with patient and/or family. Voiced unders tanding. Scripts Cephalexin (Cephalexin) 500 Mg Tablet 500 MG PO BID, #10 TAB 0 Refills Prov: CHIKIS MANCIA 12/27/18 Work/School Note: Work Release Form Date Seen in the Emergency Department: December 27, 2018 Return to Work: December 27, 2018 Restrictions: No Restrictions PATRICIA MARES MD December 27, 2018 05:55 CHIKIS MANCIA December 27, 2018 06:16
[2018-12-27 05:59] LABS: BACTERIA,URINE TRACE /HPF; CLARITY,URINE SL CLOUDY; HYALINE CASTS, URINE RARE /LPF; RBC,URINE >100 /HPF; SQUAMOUS EPITHELIAL CELL,UR RARE /HPF; WBC,URINE 0-2 /HPF
--- NOTE | 2018-12-27 06:34 | Diagnostic Imaging Report ---
PROCEDURE: CT urinary tract, rule out kidney stone. TECHNIQUE: Multiple contiguous axial images were obtained through the abdomen and pelvis without the use of intravenous contrast. Auto Exposure Controls were utilized during the CT exam to meet ALARA standards for radiation dose reduction. INDICATION: Left flank pain Lung bases are clear. Liver appears normal. Gallbladder is present. Pancreas is normal. Spleen is not enlarged. Kidneys and adrenals appear normal. Small bowel is not dilated. There is moderate amount of stool in the colon. Urinary bladder is normal. There is a large left inguinal hernia containing fat. Prostate is not enlarged. IMPRESSION: Large left inguinal hernia containing fat. No acute abnormality seen. Preliminary report is not available at time of dictation. Dictated by: Dictated on workstation # [id number]
--- NOTE | 2018-12-27 06:40 | NUR ---
pt remains alert gcs 15. remains in the room. pt denies pain and dyspnea and no acute sighns of dyspnea noted. no n/v/d noted in er visit thus far.
[2018-12-27 06:41] VITALS: BP 120/80
[2018-12-27 06:47] VITALS: BP 120/80
--- NOTE | 2018-12-27 06:47 | NUR ---
d/c instructions to pt. told to read all papers. scripts were faxed. pt knows f/u. i went over the handtyped by information on the chart. pt had no iv. work release given.
== END | disposition home or self-care (01) ==
LOC: EDUNIT# 04:49 → ER 04:52
DX: N21.0 Calculus in bladder (principal); K40.90 Unilateral inguinal hernia, without obstruction or gangrene, not specified as recurrent; Z88.8 Allergy status to other drugs, medicaments and biological substances; Z87.442 Personal history of urinary calculi
CPT/HCPCS: 74176; 81000

== ENCOUNTER 2020-02-17 05:45 | Outpatient (RCR) | payer BC ==
[~2020-02-17] VITALS: Ht 170 cm; Wt 84.0 kg
[~2020-02-17 05:45] MED LIST changes: -TAMS0.4C98 PO; +TMSL.4C PO
[2020-02-20] MEDS ORDERED: DOCU-143 PO (10:00)
[2020-02-20] MEDS ORDERED: HYDR-4226 PO (10:00)
== END 2020-02-17 11:18 | disposition home or self-care (01) ==
LOC: PREOP 05:45
PROVIDERS: ATTEND Surgery
DX: Z01.812 Encounter for preprocedural laboratory examination (principal); K40.90 Unilateral inguinal hernia, without obstruction or gangrene, not specified as recurrent; Z20.828 Contact with and (suspected) exposure to other viral communicable diseases
CPT/HCPCS: 87635

== ENCOUNTER 2020-02-20 07:20 | Day surgery (SDC) | payer BC ==
[2020-02-20] VITALS (11 sets, daily range): BP systolic 116–145; BP diastolic 69–102
[~2020-02-20] VITALS: Ht 170 cm; Wt 84.0 kg
[2020-02-20] MEDS ORDERED: BUP/EPI 0.5% 1:200,000 (SENSORCAINE) 30 ML VIAL ONE ×2 (07:26→08:10)
--- OUTSIDE RECORDS SUMMARY | 2020-02-20 07:26 | XMS REPORT | Continuity of Care Document ---
Author Organization Unknown Address Unknown Phone Unavailable Allergies Active Description Code Type Severity Reaction Onset Reported/Identified Relationship to Patient Clinical Status Yes BENADRYL MODERATE MODERATE Yes diphenhydramine [id number] D rug Allergy Unknown N/A 07/17/2017 Yes diphenhydramine [id number] D rug Allergy Mild HIVES 02/13/2020 Medications There is no data. 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 07/11/2017 PATRICIA MARES MD Ot R10.9 UNSPECIFIED ABDOMINAL PAIN 07/14/2017 W 592.0 CALC ULUS OF KIDNEY 07/14/2017 W 789.09 ABD OMINAL PAIN, OTHER SPECIFIED SITE; MULTIPLE SITES 07/14/2017 W N20.0 CALC ULUS OF KIDNEY 07/14/2017 W R10.9 UNSP ECIFIED ABDOMINAL PAIN 07/17/2017 KAHLIL MADDEN MD Ot N20.2 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 07/17/2017 KAHLIL MADDEN MD Ot Z01.8 18 ENCOUNTER FOR OTHER PREPROCEDURAL EXAMIN 07/18/2017 KAHLIL MADDEN MD Ot 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 07/20/2017 KAHLIL MADDEN MD Ot N20.2 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 07/20/2017 KAHLIL MADDEN MD Ot Z01.8 18 ENCOUNTER FOR OTHER PREPROCEDURAL EXAMIN 07/20/2017 KAHLIL MADDEN MD Ot 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 07/20/2017 KAHLIL MADDEN MD Ot 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 07/24/2017 KAHLIL MADDEN MD Ot 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 07/29/2017 KAHLIL MADDEN MD Ot 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 07/29/2017 KAHLIL MADDEN MD, Ot Z01.8 18 ENCOUNTER FOR OTHER PREPROCEDURAL EXAMIN 08/16/2017 KAHLIL MADDEN MD Ot Z09 ENCNTR FOR F/U EXAM AFT TRTMT FOR COND O 08/16/2017 KAHLIL MADDEN MD, Ot Z87.4 42 PERSONAL HISTORY OF URINARY CALCULI 08/16/2017 KAHLIL MADDEN MD, Ot Z98.8 90 OTHER SPECIFIED POSTPROCEDURAL STATES 08/17/2017 KAHLIL MADDEN MD, Ot N20.1 CALCULUS OF URETER 08/24/2017 A 462 ACUTE PHARYNGITIS 08/24/2017 W 780.60 FEV ER, UNSPECIFIED 08/24/2017 A J02.9 ACUT E PHARYNGITIS, UNSPECIFIED 08/24/2017 W R50.9 FEVE R, UNSPECIFIED 08/31/2017 KAHLIL MADDEN MD Ot Z09 ENCNTR FOR F/U EXAM AFT TRTMT FOR COND O 08/31/2017 KAHLIL MADDEN MD, Ot Z87.4 42 PERSONAL HISTORY OF URINARY CALCULI 08/31/2017 KAHLIL MADDEN MD, Ot Z98.8 90 OTHER SPECIFIED POSTPROCEDURAL STATES 03/21/2018 Ot 780.79 OTH MALAISE FATIGUE 03/21/[address] PAIN NOS 03/21/[address] PAIN NOS 03/21/2018 KAHLIL MADDEN MD, Ot N20.1 CALCULUS OF URETER 03/21/2018 KAHLIL MADDEN MD Ot Z09 ENCNTR FOR F/U EXAM AFT TRTMT FOR COND O 03/21/2018 KAHLIL MADDEN MD, Ot Z87.4 42 PERSONAL HISTORY OF URINARY CALCULI 03/21/2018 KAHLIL MADDEN MD Ot Z98.8 90 OTHER SPECIFIED POSTPROCEDURAL STATES 03/21/2018 CHANO MD, KAHLIL A Ot N20.1 CALCULUS OF URETER 03/21/2018 KAHLIL MADDEN MD Ot Z09 ENCNTR FOR F/U EXAM AFT TRTMT FOR COND O 03/21/2018 KAHLIL MADDEN MD, Ot Z87.4 42 PERSONAL HISTORY OF URINARY CALCULI 03/21/2018 KAHLIL MADDEN MD, Ot Z98.8 90 OTHER SPECIFIED POSTPROCEDURAL STATES 12/27/2018 KAHLIL MADDEN MD, Ot N20.1 CALCULUS OF URETER 12/27/2018 KAHLIL MADDEN MD Ot Z09 ENCNTR FOR F/U EXAM AFT TRTMT FOR COND O 12/27/2018 KAHLIL MADDEN MD, Ot Z87.4 42 PERSONAL HISTORY OF URINARY CALCULI 12/27/2018 KAHLIL MADDEN MD, Ot Z98.8 90 OTHER SPECIFIED POSTPROCEDURAL STATES 12/27/2018 CHIKIS LATHAM MD Ot K40. 90 UNIL INGUINAL HERNIA, W/O OBST OR GANGR, 12/27/2018 CHIKIS LATHAM MD Ot N21. 0 CALCULUS IN BLADDER 12/27/2018 CHIKIS LATHAM MD Ot R10. 32 LEFT LOWER QUADRANT PAIN 12/27/2018 CHIKIS LATHAM MD Ot Z87.442 PERSONAL HISTORY OF URINARY CALCULI 12/27/2018 CHIKIS LATHAM MD Ot Z88. 8 ALLERGY STATUS TO OTH DRUG/MEDS/BIOL SUB 12/27/2018 KAHLIL MADDEN MD Ot N20.1 CALCULUS OF URETER 12/27/2018 KAHLIL MADDEN MD Ot Z09 ENCNTR FOR F/U EXAM AFT TRTMT FOR COND O 12/27/2018 KAHLIL MADDEN MD, Ot Z87.4 42 PERSONAL HISTORY OF URINARY CALCULI 12/27/2018 KAHLIL MADDEN MD Ot Z98.8 90 OTHER SPECIFIED POSTPROCEDURAL STATES 12/31/2018 CHIKIS LATHAM MD Ot K40. 90 UNIL INGUINAL HERNIA, W/O OBST OR GANGR, 12/31/2018 CHIKIS LATHAM MD Ot N21. 0 CALCULUS IN BLADDER 12/31/2018 CHIKIS LATHAM MD Ot R10. 32 LEFT LOWER QUADRANT PAIN 12/31/2018 NOA AWAD CHIKIS Fowler Ot Z87.442 PERSONAL HISTORY OF URINARY CALCULI 12/31/2018 NOA AWAD, CHIKIS Fowler Ot Z88. 8 ALLERGY STATUS TO OTH DRUG/MEDS/BIOL SUB 02/11/2020 KAHLIL MADDEN MD, Ot N20.1 CALCULUS OF URETER 02/11/2020 KAHLIL MADDEN MD, Ot Z09 ENCNTR FOR F/U EXAM AFT TRTMT FOR COND O 02/11/2020 KAHLIL MADDEN MD, Ot Z87.4 42 PERSONAL HISTORY OF URINARY CALCULI 02/11/2020 KAHLIL MADDEN MD, Ot Z98.8 90 OTHER SPECIFIED POSTPROCEDURAL STATES Procedures There is no data. Results Test Result Range Complete blood count (CBC) with automate d white blood cell (WBC) differential - 07/11/17 07:25 Blood leukocytes automated count (number/volume) 7.3 10*3/uL 4.3-11.0 Blood erythrocytes automated count (number/volume) 5.01 10*6/uL 4.35-5.85 Venous blood hemoglobin measurement (mass/volume) 15.1 g/dL 13.3-17.7 Blood hematocrit (volume fraction) 42 % 40-54 Automated erythrocyte mean corpuscular volume 84 [ foz_us] 80-99 Automated erythrocyte mean corpuscular h emoglobin (mass per erythrocyte) 30 pg 25-34 Automated erythrocyte mean corpuscular h emoglobin concentration measurement (mass/volume) 36 g/dL 32-36 Automated erythrocyte distribution width ratio 12. 2 % 10.0- 14.5 Automated blood platelet count [...] 10*3 1.0-4.0 Blood monocytes automated count (number/volume) 0. 5 10*3 0.0-1.0 Automated eosinophil count 0.1 10*3/uL 0 .0-0.3 Automated blood basophil count (count/volume) 0.0 10*3/uL 0.0-0.1 Comprehensive metabolic panel - 07/11/17 07:25 Serum or plasma sodium measurement (moles/volume) 139 mmol/L 135-145 Serum or plasma potassium measurement (moles/volume) 3.5 mmol/L 3.6-5.0 Serum or plasma chloride measurement (moles/volume) 103 mmol/L 98-107 Carbon dioxide 23 mmol/L 21-32 Serum or plasma anion gap determination (moles/volume) 13 mmol/L 5-14 Serum or plasma urea nitrogen measurement (mass/volume ) 11 mg/dL 7-18 Serum or plasma creatinine measurement (mass/volume) 1.08 mg/dL 0.60-1.30 Serum or plasma urea nitrogen/creatinine mass ratio 10 NRG Serum or plasma creatinine measurement w ith calculation of estimated glomerular filtration rate > NRG Serum or plasma glucose measurement (mass/volume) 127 mg/dL 70-105 Serum or plasma calcium measurement (mass/volume) 9.1 mg/dL 8.5-10.1 Serum or plasma total bilirubin measurement (mass/volu me) 0.6 mg/dL 0.1-1.0 Serum or plasma alkaline phosphatase franny surement (enzymatic activity/volume) 90 U/L 40-136 Serum or plasma aspartate aminotransfera se measurement (enzymatic activity/volume) 23 U/L 5-34 Serum or plasma alanine aminotransferase measurement (enzymatic activity/volume) 19 U/L 0-55 Serum or plasma protein measurement (mass/volume) 7.4 g/dL 6.4-8.2 Serum or plasma albumin measurement (mass/volume) 4.4 g/dL 3.2-4.5 Lipase - 07/11/17 07:25 Lipase 13 U/L 8-78 Complete urinalysis with reflex to cultu re - 07/11/17 08:10 Urine color determination YELLOW NRG Urine clarity determination CLEAR NR G Urine pH measurement by test strip 6 5-9 Specific gravity of urine by test strip 1.020 1.016-1.022 Urine protein assay by test strip, semi-quantitative 2+ NEGATIVE Urine glucose detection by automated test strip NE GATIVE NEGATIVE Erythrocytes detection in urine sediment by light micr oscopy 5+ NEGATIVE Urine ketones detection by automated test strip NE GATIVE NEGATIVE Urine nitrite detection by test strip NEGATIVE NEGATIVE Urine total bilirubin detection by test strip NEGA TIVE NEGATIVE Urine urobilinogen measurement by automated test strip (mass/volume) NORMAL NORMAL Urine leukocyte esterase detection by dipstick 1+ NEGATIVE Automated urine sediment erythrocyte cou nt by microscopy (number/high power field) > [HPF] NRG Automated urine sediment leukocyte count by microscopy (number/high power field) [HPF] NRG Bacteria detection in urine sediment by light microsco py FEW NRG Crystals detection in urine sediment by light microsco py NONE NRG Casts detection in urine sediment by light microscopy NONE NRG Mucus detection in urine sediment by light microscopy MODERATE NRG Complete urinalysis with reflex to culture YES NRG Bacterial urine culture - 07/11/17 08:10 URINE CULTURE RESULTS <10,000/ML NRG Methicillin resistant Staphylococcus aur eus (MRSA) screening culture - 07/18/17 10:25 Methicillin resistant Staphylococcus aureus (MRSA) scr eening culture NEG NRG Complete urinalysis with reflex to cultu re - 12/27/18 05:42 Urine color determination YELLOW NRG Urine clarity determination SL CLOUDY N RG Urine pH measurement by test strip 6 5-9 Specific gravity of urine by test strip 1.020 1.016-1.022 Urine protein assay by test strip, semi-quantitative 1+ NEGATIVE Urine glucose detection by automated test strip NE GATIVE NEGATIVE Erythrocytes detection in urine sediment by light micr oscopy 5+ NEGATIVE Urine ketones detection by automated test strip NE GATIVE NEGATIVE Urine nitrite detection by test strip NEGATIVE NEGATIVE Urine total bilirubin detection by test strip NEGA TIVE NEGATIVE Urine urobilinogen measurement by automated test strip (mass/volume) NORMAL NORMAL Urine leukocyte esterase detection by dipstick 1+ NEGATIVE Automated urine sediment erythrocyte cou nt by microscopy (number/high power field) > [HPF] NRG Automated urine sediment leukocyte count by microscopy (number/high power field) [HPF] NRG Bacteria detection in urine sediment by light microsco py TRACE NRG Squamous epithelial cells detection in u rine sediment by light microscopy RARE NRG Crystals detection in urine sediment by light microsco py NONE NRG Casts detection in urine sediment by light microscopy PRESENT NRG Mucus detection in urine sediment by light microscopy MODERATE NRG Complete urinalysis with reflex to culture NO NRG Hyaline casts detection in urine sediment by light germain roscopy RARE NRG Encounters ACCT No. Visit Date/Time Discharge Status Pt. Type Provider Facility Loc./Unit Complaint [id number] 06/11/2019 10:46:00 06/11/2019 23:59: 00 DIS Outpatient Ellen Rhodes [id number] 08/24/2017 08:05:00 Document Registration [id number] 07/14/2017 09:30:00 Document Registration [id number] 02/17/2020 05:45:00 020 11:18:00 DIS Outpatient MUSTAPHA DICKSON DO [facility] PREOP LEFT INGUINAL HERNIA [id number] 12/27/2018 04:52:00 019 06:47:00 DIS Emergency CHIKIS LATHAM MD [facility] ER POSS KIDNEY STONES [id number] 08/15/2017 15:20:00 018 23:59:59 CLS Outpatient KAHLIL MADDEN MD [facility] RAD STONES [id number] 07/18/2017 09:43:00 017 15:38:00 DIS Outpatient KAHLIL MADDEN MD [facility] SDC RIGHT URETERAL AND LESVIA L STONES [id number] 07/17/2017 12:08:00 017 23:59:59 CLS Outpatient KAHLIL MADDEN MD [facility] RAD [id number] 07/17/2017 14:32:00 017 14:56:00 DIS Outpatient KAHLIL MADDEN MD [facility] PREOP RIGHT URETERAL AND LESVIA L STONES [id number] 07/11/2017 07:12:00 017 10:18:00 DIS Emergency PATRICIA MARES MD [facility] ER ABD PAIN [id number] 12/15/2015 18:10:00 016 23:59:59 CLS Outpatient EDGAR ENNIS APRN [facility] QUICK CRUSH INJURY/FI NGER PAIN,SWELLING [id number] 02/20/2020 07:20:[address] Outpatient MUSTAPHA DICKSON DO [facility] LEFT INGUINAL HERNIA [id number] 04/13/2010 09:46:00 Document Registration [id number] 04/12/2010 10:04:00 Document Registration
[2020-02-20] MEDS ORDERED: ceFAZolin 2 GM IV Premixed 50 ML IV ONE (07:30)
[2020-02-20] MEDS: LACTATED RINGERS 1,000 ML IV PRN ×2 (07:52→09:57)
--- NOTE | 2020-02-20 07:57 | Progress Note-Pre Operative ---
Pre-Operative Progress Note H&P Reviewed The H&P was reviewed, patient examined and no changes noted. Date Seen by Provider: Feb 20, 2020 Time Seen by Provider: 07:56 Date H&P Reviewed: Feb 20, 2020 Time H&P Reviewed: 07:56 Pre-Operative Diagnosis: left inguinal hernia MUSTAPHA DICKSON DO Feb 20, 2020 07:57
[2020-02-20] MEDS ORDERED: SEVOFLURANE (ULTANE) 15 ML INHAL SOLN ONE (08:47)
[2020-02-20] MEDS ORDERED: LIDOCAINE PF 2% 5 ML (XYLOCAINE) VIAL ONE (08:47)
[2020-02-20] MEDS ORDERED: MIDAZOLAM 2 MG/2 ML (VERSED) VIAL ONE (08:47)
[2020-02-20] MEDS ORDERED: ROCURONIUM 10 MG/ML 5 ML SYRINGE IV ONE (08:47)
[2020-02-20] MEDS ORDERED: proPOfol 200 MG/20 ML (DIPRIVAN) VIAL IV ONE (08:47)
[2020-02-20] MEDS ORDERED: fentaNYL INJECTION 100 MCG/2 ML AMP ONE (08:47)
[2020-02-20] MEDS ORDERED: ONDANSETRON 4 MG/2 ML (SDV) Z0FRAN ONE (08:48)
[2020-02-20] MEDS ORDERED: SUCCINYLCHOLINE INJ 100 MG/5 ML SYR ONE (08:48)
[2020-02-20] MEDS ORDERED: DESFLURANE (SUPRANE) 15 ML INHAL SOLN ONE ×2 (09:08→09:54)
--- NOTE | 2020-02-20 09:58 | Progress Note-Post Operative ---
Post-Operative Progess Note Surgeon (s)/Newborn Hearing Screener (s) Surgeon MUSTAPHA DICKSON DO Newborn Hearing Screener: Dr. Larios to assist in retraction dissection and closure. Pre-Operative Diagnosis left inguinal hernia Post-Operative Diagnosis Incarcerated left inguinal hernia with omentum Procedure & Operative Findings Date of Procedure 02/20/20 Procedure Performed/Findings PROCEDURE: Open left incarcerated indirect inguinal hernia repair. COMPLICATIONS: None. INDICATIONS: The patient is a 29 , male with large left inguinal hernia. He understands risks and benefits of procedure and wished to proceed with procedure. Consent was signed in the chart. DESCRIPTION OF PROCEDURE: The patient was taken to the operating suite, was prepped and draped in sterile fashion. Surgical pause was performed. Local anesthetic was infiltrated and a 15 blade scalpel was used to make a skin incision in the lower quadrant. Cautery was used to dissect down the external oblique, which was then opened down through the external ring. The spermatic cord was then dissected around. Ruben drain was placed around it and was retracted out of the way. No direct hernia present. There was an indirect defect present. Contents were stuck down in to the hernia sack which had to be opened to free omentum and then reduced it. The hernia sac was suture ligated with 0 Vicryland when cut then retracted back in abdomen. A ProGrip mesh was then cut to size, which was then secured to Wenceslao's ligament and then incorporated around the spermatic cord in the usual fashion and placed under the external oblique. The wound was then irrigated with copious amounts of irrigation. The external oblique was then closed using 3-0 Vicryl in running fashion recreating the external ring. The subcutaneous tissue was then reapproximated with 3-0 Vicryl and the skin was then closed using 4-0 Monocryl in a running subcuticular fashion. The area was then washed and dried and sterile bandages were applied. The abdomen was then washed and dried, Skin Affix was placed over the incisions. The patient tolerated procedure well without any complications and was taken to the recovery room in stable condition Anesthesia Type general Estimated Blood Loss Estimated blood loss (mL): minimal Specimens/Packing Specimens Removed hernia sac MUSTAPHA DICKSON DO Feb 20, 2020 09:58
[2020-02-20] MEDS ORDERED: HYDR-4226 PO (10:00)
[2020-02-20] MEDS ORDERED: DOCU-143 PO (10:00)
--- NOTE | 2020-02-20 10:01 | Discharge Inst-Simple/Standard ---
Discharge Inst-Standard Discharge Medications New, Converted or Re-Newed RX: RX on Chart Patient Instructions/Follow Up Plan of Care/Instructions/FU: 2-3 weeks Haley Activity as Tolerated: No Discharge Diet: Regular Diet Other Inst to Patient Follow up Appt: Make appointment for 2-3 weeks. Instructions: No lifting greater than 10 pounds. No strenuous activity. May shower in 24 hours, no tub bath or soaking. Use incentive spirometer at home as directed. No Smoking Skin/Wound Care: You have special glue over your incision that will fall off on it's own. Symptoms to Report: Appetite Changes, Extremity Discoloration, Numbness/Tingling, Swelling Increased, Bleeding Excessive, Eyesight Changes, Pain Increased, Urine Color Change, Constipation(Persistent), Fever over 101 degree F, Pain/Pressure in chest, Urinating Difficulty, Cough Up/Vomit Blood, Heart Beat Irreg/Pounding, Pain/Pressure in jaw, Vaginal Bleeding Increase, Cramps in feet or legs, Lightheadedness, Pain/Pressure in shoulder, Diarrhea(Persistent), Memory Changes Suddenly, Questions/Concerns, Weight gain consecutive days, Dizziness/Fainting, Nausea/Vomiting, Shortness of Breath, Weight gain over 2 pounds If questions or concerns contact your physician Or seek help at emergency department. MUSTAPHA DICKSON DO Feb 20, 2020 10:00
[2020-02-20] MEDS ORDERED: ONDANSETRON 4 MG/2 ML (SDV) Z0FRAN IVP PRN (10:15)
[2020-02-20] MEDS ORDERED: HYDROmorphone 2 MG/ML VIAL (DILAUDID) IV ONE (10:15)
[2020-02-20] MEDS ORDERED: HYDROcodone/APAP 5 MG/325 MG (LORTAB) TAB PO ONE (11:45)
[2020-02-20] MEDS ORDERED: HYDROcodone/APAP 5 MG/325 MG (LORTAB) TAB ONE (11:51)
--- NOTE | 2020-02-20 13:08 | Anesthesia-General Post-Op ---
General Patient Condition Mental Status/LOC: Same as Preop Cardiovascular: Satisfactory Nausea/Vomiting: Absent Respiratory: Satisfactory Pain: Controlled Complications: Absent Post Op Complications Complications None Follow Up Care/Instructions Patient Instructions None needed. Anesthesia/Patient Condition Patient Condition Patient is doing well, no complaints, stable vital signs, no apparent adverse anesthesia problems. No complications reported per nursing. D/C home per [facility] Criteria: Yes GALINA OTERO CRNA Feb 20, 2020 13:08
== END 2020-02-20 12:21 | disposition home or self-care (01) ==
LOC: SDC 07:20
PROVIDERS: ATTEND Surgery
DX: K40.30 Unilateral inguinal hernia, with obstruction, without gangrene, not specified as recurrent (principal); G89.29 Other chronic pain; M54.5 Low back pain; K21.9 Gastro-esophageal reflux disease without esophagitis; Z79.899 Other long term (current) drug therapy; Z88.8 Allergy status to other drugs, medicaments and biological substances; Z80.9 Family history of malignant neoplasm, unspecified; Z82.49 Family history of ischemic heart disease and other diseases of the circulatory system
CPT/HCPCS: 49507; 87081; C1781